=== PATIENT | female | born 1985 | race Caucasian/White ===

== ENCOUNTER 2025-10-09 10:45 | Emergency (ER) | payer OTHER, SELFPAY ==
--- NOTE | ~2025-10-09 | CT_ITS ---
CLINICAL HISTORY: bilateral flank pain CT abdomen and pelvis without contrast Comparison: None provided Findings: The lung bases are clear. Unremarkable abdominal organs. No urolithiasis or hydronephrosis. No calcified gallstones. Moderate fecal retention within the colon. No bowel edema or dilatation. No pneumatosis or portal venous gas. There is an intrauterine device within the endometrial canal. Pelvic contents are otherwise unremarkable. The appendix is not definitively seen. There are no secondary findings to suggest appendicitis. The bones are intact. IMPRESSION: 1. No urolithiasis or hydronephrosis. 2. There is an intrauterine device within the endometrial canal. 3. There is moderate fecal retention within the colon. There is no evidence of bowel edema or bowel obstruction. This document has been electronically signed by: Gloria Rodriguez MD on 10/09/2025 18:29:10
[2025-10-09 10:53] VITALS: BP 122/57; PULSE 80; RESP 18; TEMP 36.7; O2SAT 99; BMI 22.9
--- NOTE | 2025-10-09 10:55 | ED_ITS ---
HPI - General Adult General Chief complaint: Back Pain/Injury Stated complaint: ? Kidney Function Time Seen by Provider: 10/09/25 16:39 History of Present Illness HPI narrative: 40-year-old female with a history of UTIs history of yeast infection. Patient claims she was treated with H pylori. Has a squeezing sensation over the flank area there is no new vaginal discharge. Sexually active 1 partner. No history of STDs in the past. No history of kidney stones in the past. No fever no chills. No diaphoresis continued to have the flank pain worse on the left side but also in the right side. Patient is from home. No coughing or congestion or upper respiratory symptoms. No diaphoresis. Related Data Allergies Allergy/AdvReac Type Severity Reaction Status Date / Time No Known Allergies Allergy Verified 10/09/25 10:56 Review of Systems 2 Review of Systems: Positive flank pain PMFSH Past Medical History Attestation statement: The following information was validated with the patient. Social History Social History Smoked in Last 30 Days: No Advance Directives: No Advance Directives Information Provided: No Physical Exam ED Exam Exam: Appearance: Alert. Oriented X3. No acute distress. Eyes: Pupils equal, round and reactive to light. ENT: Pharynx normal. Neck: Normal inspection. Neck supple. No lymph nodes noted. No crepitus CVS: Normal heart rate and rhythm. Pulses normal. Normal S1 and S2 Respiratory: No respiratory distress. Breath sounds normal. No Wheezing. No rales Abdomen: Soft and nontender. No rigidity. No distention. good BS x4 Skin: Skin warm and dry. Normal skin color. Normal skin turgor. Extremities: No lower extremity edema. Neurovascular intact to all extremities. No Lacerations. No Rash Neuro: Oriented X 3. No motor deficit. No sensory deficit. Moving all extermities. No slurred speech Vital Signs: Vital Signs - 24 hr 10/09/25 10:53 10/09/25 17:39 Temperature 98.0 F Pulse Rate 80 70 Respiratory Rate 18 20 Blood Pressure 122/57 L 112/60 Pulse Oximetry 99 97 Oxygen Delivery Method Room Air Room Air BMI result Body Mass Index 22.9 Course Course Course Narrative: Rapid medical examination performed in triage by Linda Abreu, PA-C: Patient is a 40 year old assigned female at presenting to the emergency department with painful urination and concern for kidney issues after several treatments for urinary tract infections. Detailed physical exam and review of systems are deferred to the lens generating machine tender. Labs and vaginal swabs ordered. Patient placed back in the waiting room pending room availability and results. Medical Decision Making Medical Decision Making MDM Narrative: 40-year-old presented today with having flank pain worse over the left flank area it has been ongoing for few months. Had multiple treatments for UTI. Has a history of H pylori. Patient denies any change in bowel movement. Has normal p.o. intake. Has no pain on urination. No coughing or congestion or upper respiratory symptoms. Patient finishing antibiotics for UTI then had question discharge then was given an additional medicine for yeast. Subsequently the vaginal symptoms had subsided. Now still has flank pain. I reviewed radiology's reading of the CT scan abdomen pelvis which was grossly negative for kidney stone obstruction abscess perforation it did show a good amount of stool. Differential Diagnosis Differential Diagnoses: The differential diagnosis associated with the presentation includes Urinary tract infection, kidney stone, diverticulitis Admission/Observation Consideration of admission/observation: Escalation of care including admission/observation considered Lab Data MDM Lab Attestation statement: I reviewed the patient's lab results. 10/09/25 11:08 10/09/25 11:08 Labs: Lab Results 10/09/25 Range/Units 11:08 WBC 7.1 (4.8-10.8) X10*3/uL RBC 4.98 (4.20-5.50) X10*6/uL Hgb 14.1 (12.0-16.0) g/dl Hct 42.6 (37.0-47.0) % MCV 85.5 (80.0-98.0) fL MCH 28.3 (27.0-33.0) pg MCHC 33.1 (31.0-35.0) g/dl RDW 13.2 (11.0-16.0) % Plt Count 240 (160-400) X10*3/uL MPV 10.6 (9.4-12.3) fL Immature Gran % (Auto) 0.3 (0.0-0.4) % Neut % (Auto) 57.0 (45-73) % Lymph % (Auto) 33.9 (20-40) % Weld % (Auto) 6.1 (2-11) % Eos % (Auto) 2.1 (0-4) % Baso % (Auto) 0.6 (0-2) % Lymph # (Auto) 2.4 (1.2-4.9) X10*3/uL Weld # (Auto) 0.4 (0.1-1.2) X10*3/uL Eos # (Auto) 0.2 (0.0-0.4) X10*3/uL Baso # (Auto) 0.0 (0.0-0.2) X10*3/uL Abs Immat Gran (auto) 0.02 (0.00-0.03) X10*3/uL Absolute Neuts (auto) 4.0 (2.0-8.3) x10*3/uL Absolute Nucleated RBC 0.000 (0.0-0.012) X10*3/uL Nucleated RBC % (auto) 0.0 (0.0-0.2) /100WBC Sodium 139 (135-145) mmol/L Potassium 3.9 (3.3-5.1) mmol/L Chloride 105 (96-108) mmol/L Carbon Dioxide 26 (22-29) mmol/L Anion Gap 12 (12-20) BUN 12 (9-16) mg/dL Creatinine 0.58 (0.5-1.4) mg/dL Estim Creat Clear Calc 111.3 Estimated GFR > 60 Random Glucose 73 (60-115) mg/dL Calcium 10.4 H (8.4-10.2) mg/dL Total Bilirubin 1.0 (0.0-1.0) mg/dL AST 43 H (5-31) U/L ALT 68 H (0-31) U/L Alkaline Phosphatase 56 (39-117) U/L Total Protein 7.8 (6.5-8.0) g/dL Albumin 5.0 (3.5-5.0) g/dL Urine Color Yellow Urine Appearance Cloudy Urine pH 7.0 (5.0-9.0) Ur Specific [place] 1.010 (1.005-1.025) Urine Protein Negative (Neg-Trace) mg/dL Urine Glucose (UA) Negative (Negative) mg/dL Urine Ketones Negative (Negative) mg/dL Urine Blood Negative (Negative) Urine Nitrite Negative (Negative) Ur Leukocyte Esterase Negative (Negative) Urine Test NEGATIVE (NEGATIVE) Independent Interpretation I performed an independent interpretation of an: CT Scan (No obvious obstruction) Radiology Impression Discussion of test interpretation with radiology: I have reviewed the radiologist's reading. Prescription Management I considered prescription management with: Pain Medication Chronic Conditions History Social Determinants Patient?s care significantly limited by Social Determinants of Health including: Problems related to primary support group Discharge Plan Discharge Clinical Impression: Acute flank pain Patient Disposition: Home, Self-Care Referrals: Paul Esposito MD [Primary Care Provider, Internal Medicine] - 10/13/25 Print Language: Tanzanian
[2025-10-09 11:13] LABS: MANUAL DIFF FLAG NO
[2025-10-09 11:16] LABS: Appearance Urine Cloudy; Glucose Urine UA Negative (Negative); PH 7.0 (5.0-9.0); Specific Gravity - Urine 1.010 (1.005-1.025)
[2025-10-09 11:25] LABS: Hematocrit 42.6 % (37.0-47.0); Hemoglobin 14.1 g/dl (12.0-16.0); Imm Gran Abs Auto 0.02 X10*3/uL (0.00-0.03); Imm Gran Pct Auto 0.3 % (0.0-0.4); Lymphocytes Absolute Auto 2.4 X10*3/uL (1.2-4.9); Mean Corpuscular HGB Conc 33.1 g/dl (31.0-35.0); Mean Corpuscular Hemoglobin 28.3 pg (27.0-33.0); Mean Corpuscular Volume 85.5 fL (80.0-98.0); NRBC Abs Auto 0.000 X10*3/uL (0.0-0.012); NRBC Pct Auto 0.0 /100WBC (0.0-0.2); Platelet Count 240 X10*3/uL (160-400); Red Blood Count 4.98 X10*6/uL (4.20-5.50); White Blood Count 7.1 X10*3/uL (4.8-10.8)
[2025-10-09 11:32] LABS: Alanine Aminotransferase 68 U/L (0-31); Albumin Level 5.0 g/dL (3.5-5.0); Alkaline Phosphatase 56 U/L (39-117); Anion Gap 12 (12-20); Aspartate Amino Transferase 43 U/L (5-31); Blood Urea Nitrogen 12 mg/dL (9-16); Calcium 10.4 mg/dL (8.4-10.2); Carbon Dioxide 26 mmol/L (22-29); Chloride 105 mmol/L (96-108); Creatinine Clr Calc Pharmacy 111.3; Estimated Glomerular Filt Rate > 60; Potassium 3.9 mmol/L (3.3-5.1); Sodium 139 mmol/L (135-145); Total Protein 7.8 g/dL (6.5-8.0)
[2025-10-09 17:21] LABS: UPreg QC Valid YES
[2025-10-09 17:39] VITALS: BP 112/60; PULSE 70; RESP 20; O2SAT 97
[2025-10-09 19:32] VITALS: BP 110/46; PULSE 66; TEMP 36.7; O2SAT 99
[2025-10-09 19:59] VITALS: BP 110/46; PULSE 66; RESP 18; TEMP 36.6; O2SAT 99
== END 2025-10-09 20:00 | disposition home or self-care (01) ==
PROVIDERS: Physician Assistant Medical; Emergency Provider Emergency Medicine Emergency Medical Services; PCP Internal Medicine
DX: R10.9 Unspecified abdominal pain (principal)
CPT/HCPCS: 36415; 74176; 80053; 81003; 81025; 85025; 99284

== ENCOUNTER → 2025-10-09 17:26 | Outpatient (BNV) | payer OTHER, SELFPAY | PROVIDERS: Emergency Provider Emergency Medicine Emergency Medical Services; PCP Internal Medicine; Visit Provider Radiology Diagnostic Radiology | DX: K59.00 Constipation, unspecified (principal); Z97.5 Presence of (intrauterine) contraceptive device | CPT/HCPCS: 74176 ==